=== PATIENT | male | born 1985 | race Hispanic/Latino ===

== ENCOUNTER 2018-02-24 04:08 | Emergency (ER) | payer OTHER ==
[2018-02-24 04:27] VITALS: BP 126/74; PULSE 66; RESP 17; TEMP 97.7; O2SAT 99
[2018-02-24] MEDS ORDERED: Lidocaine 1% w Epi 1:100,000 Inj ONE (04:37)
[2018-02-24] MEDS ORDERED: Lidocaine/Prilocaine CREAM 5GM TP ONE ×2 (04:42→04:50)
[2018-02-24] MEDS ORDERED: Lidocaine/Epi 1% 1:100000 20 ML IJ ONE (04:48)
--- NOTE | 2018-02-24 05:46 | ED PDOC ---
Syncope/Near Syncope/Dizziness Time Seen by Provider: 02/24/18 04:31 Chief Complaint (Nursing): Syncope Chief Complaint (Provider): Syncope History Per: Patient History/Exam Limitations: no limitations Onset/Duration Of Symptoms: Days (x1) Current Symptoms Are (Timing): Still Present Additional Complaint(s): Alejo Ro is a 32 year old male with no past medical history who is presenting to the ED for evaluation of head injury s/p drinking last night and passing out in the bathroom. Patient states that he went to the bathroom and fell asleep after which he "passed out" and hit the back of his head. He denies any chest pain, shortness of breath, or palpitations. Patient reports that he "feels fine" now and offers no other medical complaints at this time. PMD: none provided Past Medical History Reviewed: Historical Data, Nursing Documentation, Vital Signs Vital Signs: Last Vital Signs Temp 97.7 F 02/24/18 04:25 Pulse 66 02/24/18 04:25 Resp 17 02/24/18 04:25 BP 126/74 02/24/18 04:25 Pulse Ox 99 02/24/18 04:25 - Medical History PMH: No Chronic Diseases - Surgical History Surgical History: No Surg Hx - Family History Family History: States: Unknown Family Hx - Social History Current smoker - smoking cessation education provided: No Alcohol: Other (not specified amount) Drugs: Denies - Allergies Allergies/Adverse Reactions: Allergies Allergy/AdvReac Type Severity Reaction Status Date / Time No Known Allergies Allergy Verified 02/24/18 04:27 Review of Systems ROS Statement: Except As Marked, All Systems Reviewed And Found Negative Cardiovascular: Negative for: Chest Pain, Palpitations Respiratory: Negative for: Shortness of Breath Neurological: Positive for: Other (head injury, syncope) Physical Exam - Reviewed Nursing Documentation Reviewed: Yes Vital Signs Reviewed: Yes - Physical Exam Appears: Positive for: Non-toxic, No Acute Distress Head Exam: Positive for: ATRAUMATIC, NORMOCEPHALIC. Negative for: NORMAL INSPECTION ((+) 7 cm linear laceration to the back of the head) Skin: Positive for: Normal Color, Warm, Dry Eye Exam: Positive for: EOMI, Normal appearance, PERRL Neck: Positive for: Normal, Painless ROM Cardiovascular/Chest: Positive for: Regular Rate, Rhythm. Negative for: Murmur Respiratory: Positive for: Normal Breath Sounds. Negative for: Respiratory Distress Gastrointestinal/Abdominal: Positive for: Normal Exam Back: Positive for: Normal Inspection Extremity: Positive for: Normal ROM. Negative for: Deformity, Swelling Neurologic/Psych: Positive for: Alert, Oriented. Negative for: Motor/Sensory Deficits - ECG O2 Sat by Pulse Oximetry: 99 (RA) Pulse Ox Interpretation: Normal Medical Decision Making Medical Decision Making: Time: 4:42 32 year old male with syncopal episode s/p drinking last night who presents with laceration. Syncopal episode likely related to alcohol consumption. Patient in no acute distress with normal vitals. He will get head CT scan and a laceration repair. Laceration repair will include Lidocaine and EKG will also be conducted in the ED. CT Head; FINDINGS: Brain: Unremarkable. No hemorrhage. No significant white matter disease. No edema. Ventricles: Unremarkable. No ventriculomegaly. Bones/joints: Unremarkable. No acute fracture. Soft tissues: Unremarkable. Sinuses: Minimal bilateral maxillary sinus fluid. Mastoid air cells: Unremarkable. No mastoid effusion. Orbits: The visualized portions of globe and lens appear intact. IMPRESSION: No evidence of an acute intracranial hemorrhage, midline shift or mass effect is identified. PAtient feeling much better, steady gait, normal vitals, infomred to return in 10-14 days for staple removal. Wound care instructions given. Return precautions discussed. Scribe Attestation: Documented by, Jacki Arshad acting as a scribe for Shan Macias MD. Provider Scribe Attestation: All medical record entries made by the Scribe were at my direction and personally dictated by me. I have reviewed the chart and agree that the record accurately reflects my personal performance of the history, physical exam, medical decision making, and the department course for this patient. I have also personally directed, reviewed, and agree with the discharge instructions and disposition. Procedures - Laceration/Wound Repair Head Wound's Depth, Shape: superficial Wound Explored: clean Anesthesia: 1% Lidocaine Wound Debrided: minimal Wound Repaired With: [place] (8) Wound Complexity: Simple Disposition - Clinical Impression Clinical Impression: Syncope, Head injury, Laceration - Disposition Disposition: Routine/Home Disposition Time: 06:41 Condition: IMPROVED Instructions: Syncope (Fainting), Closed Head Injury (DC), Laceration Repair, Laceration Repair With [place] (DC) Forms: [employer] (Ecuadorean)
--- NOTE | 2018-02-24 06:09 | CT ---
EXAM: CT Head Without Intravenous Contrast CLINICAL HISTORY: 32 years old, male; Injury or trauma; Injury Head injury-unspecified. ; Initial encounter; Blunt trauma (contusions or hematomas); Additional info: Head injury, large lac to back of head TECHNIQUE: Axial computed tomography images of the head/brain without intravenous contrast. All CT scans at this facility use one or more dose reduction techniques, viz.: automated exposure control; ma/kV adjustment per patient size (including targeted exams where dose is matched to indication; i.e. head); or iterative reconstruction technique. 351 images are submitted. Axial images are submitted in brain and bone windows. Coronal and sagittal reformatted images were created and reviewed. Axial reformatted images were created and reviewed. COMPARISON: No relevant prior studies available. FINDINGS: Brain: Unremarkable. No hemorrhage. No significant white matter disease. No edema. Ventricles: Unremarkable. No ventriculomegaly. Bones/joints: Unremarkable. No acute fracture. Soft tissues: Unremarkable. Sinuses: Minimal bilateral maxillary sinus fluid. Mastoid air cells: Unremarkable. No mastoid effusion. Orbits: The visualized portions of globe and lens appear intact. IMPRESSION: No evidence of an acute intracranial hemorrhage, midline shift or mass effect is identified.
--- NOTE | 2018-02-25 14:25 | CARD ---
APPROVED REPORT EKG Measurement Heart [id number] MD [id number] <Conclusion> Normal sinus rhythm
== END 2018-02-24 06:56 | disposition home or self-care (01) ==
LOC: H.ER 04:08
DX: S01.01XA Laceration without foreign body of scalp, initial encounter (principal); R55 Syncope and collapse; W18.30XA Fall on same level, unspecified, initial encounter